=== PATIENT | male | born 1985 | race Caucasian/White ===

== ENCOUNTER 2025-02-06 07:44 | Outpatient (CLI) | payer BC, SELFPAY ==
--- NOTE | ~2025-02-06 | MR_ITS ---
EXAMINATION: MR knee LT wo con DATE: 02/06/2025 08:16 INDICATION: Chronic left knee pain. TECHNIQUE: Magnetic resonance imaging (MRI) of the left knee was performed without intravenous contrast. Sequences included axial PD-weighted FS FSE, coronal PD-weighted FSE and PD-weighted FS FSE, sagittal PD-weighted FSE, and sagittal T2-weighted FS FSE. COMPARISON: None. FINDINGS: Medial compartment: There are likely changes of partial meniscectomy. Abnormal signal in the medial meniscus extends to the articular surfaces in the body and posterior horn. There is partial-thickness cartilage loss of femoral condyle, deep at the central and posterior articular surface. There is shallow partial-thickness cartilage loss of tibial condyle. Osteophytes are noted. Lateral compartment: The lateral meniscus is normal. There is cartilage surface irregularity of femoral condyle. Tibial cartilage is normal. Osteophytes are noted. Patellofemoral compartment: The patellar cartilage is normal. There is cartilage surface irregularity of the trochlea. Ligaments and tendons: There are changes of anterior cruciate ligament reconstruction. The posterior cruciate ligament is intact. There are changes of prior sprains of medial collateral ligament and lateral collateral ligament characterized by increased signal intensity proximally. There is mild patellar tendinopathy. Fluid: There is a small knee joint effusion. There is trace fluid in a Rodriguez's cyst. IMPRESSION: 1. Moderate chondrosis of medial compartment and mild chondrosis of lateral and patellofemoral compartments. 2. Partial medial meniscectomy. Abnormal signal in the medial meniscus may be a recurrent tear with a normal postoperative appearance. An MR arthrogram may be useful. 3. Intact anterior cruciate ligament reconstruction. 4. Small knee joint effusion. Reviewed, dictated and finalized at location E.
== END 2025-02-06 07:45 | disposition home or self-care (01) ==
PROVIDERS: PCP Pediatrics; Visit Provider Orthopaedic Surgery
DX: M25.462 Effusion, left knee (principal)
CPT/HCPCS: 73721